=== PATIENT | female | born 1985 | race Caucasian/White ===

== ENCOUNTER 2017-03-18 18:04 | Emergency (ER) | payer SELFPAY ==
[~2017-03-18 18:04] MED LIST: DOCU50SY2 PO; MEDR4PAK3 PO; TRAM50TA PO
[2017-03-18] MEDS ORDERED: EPINEPHrine HCL (1:10,000) 1 MG/10 ML SYRINGE IV ONE (18:05)
--- NOTE | 2017-03-18 19:09 | PD ---
HPI . CODE BLUE Chief Complaint: Code Blue Time Seen by Provider: 18:21 Travel History International Travel<30 days: No Contact w/Intl Traveler<30days: No History of Present Illness HPI This patient presents to us via [facility] as a CODE BLUE. EVAC reports that she had been preparing Thanksgiving dinner when she started to feel poorly. She went to lay down. A few minutes later, her family found her pulseless and apneic. CPR was started by the family and [facility] was called. They found her pulseless in a PEA rhythm. She was treated by them with intubation, compressions and epinephrine. She was then transported to the hospital. By the time she got here, her downtime had been > 30 minutes. PFSH Past Medical History Asthma: Yes (CHILDHOOD) Anxiety: Yes Depression: Yes Chemotherapy: No Cerebrovascular Accident: No Diabetes: No Diminished Hearing: No Gastrointestinal Disorders: Yes (ULCERATIVE COLITIS) Reproductive: Yes (POLYCYSTIC OVARY DISEASE) Integumentary: Yes (HX OF MRSA) Immunizations Current: Yes : 2 Para: 1 Miscarriage: 3 : 1 Ovarian Cysts: Yes (POLYCYSTIC OVARIES) Past Surgical History Abdominal Surgery: Yes (GASTRIC BYPASS 2000) Cholecystectomy: Yes (2000) Genitourinary Surgery: Yes (GASTRIC BYPASS 2000) Tonsillectomy: Yes (AGE 6) Social History Alcohol Use: Yes ("WINE ON WEDNESDAY NIGHTS") Tobacco Use: Yes (3 CIGARETTES A DAY) Substance Use: Yes (CRACK, ALCOHOL ON 02/27/2014) Allergies-Medications (Allergen,Severity, Reaction): Coded Allergies: acetaminophen (Unverified Allergy, Severe, BAD DREAMS, 12/08/16) codeine (Unverified Allergy, Severe, BAD DREAMS, 12/08/16) morphine (Unverified Allergy, Severe, HIVES, 12/08/16) red dye (Unverified Allergy, Severe, HIVES, 12/08/16) Reported Meds & Prescriptions Reported Meds & Active Scripts Active Tramadol Hcl (Tramadol HCl) 50 Mg Tab 50 Mg PO Q6HR PRN Review of Systems ROS Limitations: Unresponsive Physical Exam Narrative GENERAL: Patient is unresponsive. SKIN: warm/dry. HEAD: Normocephalic. Atraumatic. EYES: Pupils are fixed and dilated. ENT: No nasal bleeding or discharge. Mucous membranes pink and moist. NECK: Trachea midline. Full range of motion without pain.. CARDIOVASCULAR: Systolic. RESPIRATORY: No spontaneous respirations. Breath sounds are heard bilaterally with bagging. GASTROINTESTINAL: Abdomen soft. Nontender. Bowel sounds present. Nondistended. MUSCULOSKELETAL: No obvious deformities. NEUROLOGICAL: GCS 3. Flaccid. PSYCHIATRIC: Unable to assess. MDM Medical Decision Making Medical Screen Exam Complete: Yes Emergency Medical Condition: Yes Differential Diagnosis Differential diagnosis includes primary cardiac arrest, respiratory arrest, head injury, drug intoxication, diabetic coma Narrative Course This patient presented apneic and pulseless. She was asystolic on the monitor. Cardiac ultrasound was done and showed no cardiac activity. The code was then called. I have requested that this be a certified ophthalmic medical technician case. Procedures Procedure Narrative Emergency department cardiac ultrasound was performed. Linear probe was used in the epigastric, parasternal long/short access, four- chamber apical revealing no cardiac activity. Diagnosis Primary Impression: Cardiac arrest Disposition: 20 SENT TO MED EXAMINR Joan Obrien MD Mar 18, 2017 19:08
== END 2017-03-18 20:20 | disposition expired ==
LOC: NEPE 18:04 → NEPI 20:20
DX: I46.9 Cardiac arrest, cause unspecified (principal); J45.909 Unspecified asthma, uncomplicated; F41.9 Anxiety disorder, unspecified; F32.9 Major depressive disorder, single episode, unspecified; Z87.19 Personal history of other diseases of the digestive system; F17.210 Nicotine dependence, cigarettes, uncomplicated; Z79.899 Other long term (current) drug therapy; Z88.5 Allergy status to narcotic agent; Z88.6 Allergy status to analgesic agent
CPT/HCPCS: 92950; 99285; J0171